=== PATIENT | male | born 1945 | race Caucasian/White ===

== ENCOUNTER 2016-11-20 13:26 | Inpatient (IN) | payer BC, MEDICARE ==
[~2016-11-20] VITALS: Ht 180.3 cm; Wt 87.5 kg
[2016-11-20] MEDS ORDERED: OPTIRAY 350 100 ML VIAL HMH IV ONE (13:27)
[2016-11-20] MEDS ORDERED: ONDANSETRON 4 MG VIAL ONE (14:41)
[2016-11-20] MEDS ORDERED: SODIUM CHLORIDE 0.9% 1,000 ML ONE ×2 (14:41→15:02)
[2016-11-20] MEDS ORDERED: PANTOPRAZOLE 40 MG VIAL IV ONE (15:37)
[2016-11-20] MEDS ORDERED: MAG HYDROX 30 ML UDC PO PRN (18:00)
[2016-11-20] MEDS ORDERED: BISACODYL EC 5 MG TAB PO PRN (18:00)
[2016-11-20] MEDS ORDERED: SODIUM CHLORIDE 0.9% 1,000 ML IV SCH (18:00)
[2016-11-20] MEDS ORDERED: BISACODYL 10 MG SUPP RECTAL PRN (18:00)
[2016-11-20] MEDS ORDERED: ACETAMINOPHEN 325 MG TAB PO PRN (18:00)
[2016-11-20] MEDS ORDERED: SALINE FLUSH 10 ML FLUSH PRN (18:00)
[2016-11-20] MEDS ORDERED: ALU/MAG/SIM 30 ML UDC PO PRN (18:00)
[2016-11-20] MEDS ORDERED: PROMETHAZINE 25 MG/ML VIAL IV PRN (18:00)
[2016-11-20] MEDS ORDERED: DEXTROSE 50% SYRINGE 50 ML IV PRN (18:10)
[2016-11-20] MEDS ORDERED: GLUCAGON 1 MG VIAL IM PRN (18:10)
[2016-11-20] MEDS ORDERED: ED METRONIDAZOLE IV 100 ML IV ONE (18:54)
[2016-11-20] MEDS: SALINE FLUSH 10 ML FLUSH SCH (20:00)
[2016-11-20 21:07] VITALS: BP_SYST 135; RESP 18; TEMP 97.1
[2016-11-20 21:08] VITALS: BP_SYST 141
[2016-11-20] MEDS: PIPERACIL/TAZO 3.375GM/50ML 50 ML IV SCH (21:40)
[2016-11-20 22:33] VITALS: BMI 26.9
[2016-11-20 23:30] VITALS: BP_SYST 118; RESP 16; TEMP 97.2
[2016-11-21] VITALS (8 sets, daily range): BP systolic 116–138; RESP 16–20; TEMP 97.4–98.1; Ht 180.3 cm; Wt 87.5 kg
[2016-11-21] MEDS: PIPERACIL/TAZO 3.375GM/50ML 50 ML IV SCH ×4 (01:30→18:00)
[2016-11-21] MEDS ORDERED: SODIUM CHLORIDE 0.9% FLUSH BAG 500 ML IV SCH (06:00)
[2016-11-21] MEDS ORDERED: SODIUM CHLORIDE 0.9% 1,000 ML ONE (06:57)
[2016-11-21] MEDS ORDERED: KETOROLAC 30 MG/ML VIAL ONE (06:57)
[2016-11-21] MEDS ORDERED: ONDANSETRON 4 MG VIAL ONE (06:57)
[2016-11-21] MEDS: SALINE FLUSH 10 ML FLUSH SCH (08:49)
[2016-11-21] MEDS ORDERED: ENOXAPARIN 40 MG/0.4 ML SYR SUBQ SCH (09:00)
[2016-11-21] MEDS ORDERED: METFORMIN 500 MG TAB PO SCH (10:27)
== END 2016-11-21 18:50 | disposition home or self-care (01) | DRG 637 ==
LOC: ENRESERVTM → ENRESERVDT → ER 13:26 → EMR 18:10 → ENPENDDIS 18:10 → 3NT 20:36
PROVIDERS: ADMIT Internal Medicine; ATTEND Internal Medicine
DX: E11.65 Type 2 diabetes mellitus with hyperglycemia (principal); J18.9 Pneumonia, unspecified organism; K52.9 Noninfective gastroenteritis and colitis, unspecified; Z87.891 Personal history of nicotine dependence
CPT/HCPCS: 36415; 74177; 80048; 80053; 81003; 82009; 82803; 82947; 83036; 83690; 85025; 96361; 96365; 96375; 99223; 99239